=== PATIENT | male | born 1975 | race Caucasian/White ===

== ENCOUNTER 2017-10-12 21:55 | Emergency (ER) | payer SELFPAY ==
[~2017-10-12] VITALS: Ht 177.8 cm; Wt 96.5 kg
[~2017-10-12 21:55] MED LIST: CIPRO500 MG PO; CLARITIN10 M3 PO; CLEOCIN300 MG PO; FLEXERIL10 MG PO; MOTRIN600 MG PO; NEXIUM20 MG PO; NORCO 5/3251 TABLET PO; NORVASC5 MG PO; PERCOCET 5/31 TABLET PO; PRILOSEC10 MG PO
[2017-10-12 22:32] LABS: HEMATOCRIT 44.5 % (38.0-50.0); HEMOGLOBIN 15.7 G/DL (12.5-16.6); MCH 33.8 PG (29.0-34.0); MCHC 35.3 G/DL (30.0-36.0); MCV 95.7 FL (86-99); PLATELET COUNT 219 K/uL (156-360); RBC DIS.WIDTH-SD 42.1 % (39-53); RED BLOOD COUNT 4.65 M/uL (4.00-5.50)
[2017-10-12 22:49] LABS: CHLORIDE 103 mEq/L (99-109); POTASSIUM 3.6 mEq/L (3.7-5.4); SODIUM 138 mEq/L (136-147)
[2017-10-12 22:51] LABS: GLUCOSE 131 mg/dL (70-99)
[2017-10-12 22:54] LABS: TROP-I INTERPRETATION NEGATIVE; TROPONIN-I < 0.01 ng/mL (0.0-0.30)
[2017-10-12 22:55] LABS: GFR ESTIMATE (CALCULATED) > 59 mL/min/ (58.99-99999)
[2017-10-12 22:56] LABS: UREA NITROGEN (BUN) 8 mg/dL (9-23)
[2017-10-12 23:35] LABS: ALBUMIN 4.4 g/dL (3.2-4.8); PTT 31.6 SEC (25-37)
[2017-10-12 23:38] LABS: TOTAL PROTEIN 7.2 g/dL (6.4-8.3)
[2017-10-12 23:40] LABS: TOTAL BILIRUBIN 0.4 mg/dL (0.0-1.0)
[2017-10-12 23:41] LABS: ALKALINE PHOSPHATASE 100 IU/L (3-129)
[2017-10-12 23:43] LABS: AST (GOT) 29 IU/L (2-34); DIRECT BILIRUBIN 0.1 mg/dL (0.0-0.3)
[2017-10-12 23:44] LABS: ALT (GPT) 47 IU/L (3-49); LIPASE 22 U/L (1.0-51.0)
[2017-10-13 02:11] VITALS: BP 138/96
== END 2017-10-13 02:11 | disposition home or self-care (01) ==
LOC: EME 21:55
DX: R20.2 Paresthesia of skin (principal); I10 Essential (primary) hypertension; J45.909 Unspecified asthma, uncomplicated; F17.200 Nicotine dependence, unspecified, uncomplicated; Z87.11 Personal history of peptic ulcer disease; Z85.858 Personal history of malignant neoplasm of other endocrine glands; Z88.2 Allergy status to sulfonamides; Z88.0 Allergy status to penicillin
CPT/HCPCS: 70450; 71046; 80048; 80076; 83690; 84484; 85027; 85610; 85730; 93005; 99281; 99285